=== PATIENT | female | born 1995 | race Caucasian/White ===

== ENCOUNTER 2016-11-03 05:19 | Emergency (ER) | payer BC ==
[2016-11-03 06:00] LABS: BASOPHILS 0.4 % (0.0-2.0); EOSINOPHILS 3.4 % (0-7); HEMATOCRIT 33.1 % (36.0-48.0); HEMOGLOBIN 10.4 g/dL (12-16); IMMATURE GRANULOCYTES 0.3 % (0-5); LYMPHOCYTES 37.5 % (15-50); MCH 24.2 pg (26.0-34.0); MCHC 31.4 g/dL (31.0-37.0); MEAN PLATELET VOLUME 9.8 fL (7.4-10.4); MONOCYTES 3.8 % (2-11); NEUTROPHILS 54.6 % (40-80); PLATELET COUNT 346 10x3/uL (130-400); WBC 11.6 10x3/uL (4.8-10.8)
[2016-11-03 06:09] LABS: HCG URINE NEGATIVE (NEGATIVE)
[2016-11-03 06:27] LABS: APPEARANCE CLEAR (CLEAR); COLOR YELLOW (YELLOW); GLUCOSE NEGATIVE (NEGATIVE); KETONE NEGATIVE (NEGATIVE); LEUKOCYTE ESTERASE TRACE (NEGATIVE); NITRITE NEGATIVE (NEGATIVE); PROTEIN NEGATIVE (NEGATIVE); SPECIFIC GRAVITY 1.015 (1.005-1.020)
[2016-11-03 06:28] LABS: BILIRUBIN NEGATIVE (NEGATIVE); UROBILINOGEN NORMAL (NORMAL)
[2016-11-03 06:30] LABS: EPITHELIAL CELLS 0-5 /hpf (0-5); RED CELLS - URINE 0-5 /hpf (0-5); WHITE CELLS - URINE 0-5 /hpf (0-5)
[2016-11-03 06:31] LABS: BACTERIA MODERATE /hpf (NONE SEEN); MUCUS <1+ /lpf (NONE SEEN)
[2016-11-03 06:36] LABS: ALBUMIN 3.5 g/dL (3.4-5.0); ANION GAP 12.3 mmol/L (8-16); BILIRUBIN - TOTAL 0.59 mg/dL (0.2-1.3); CALCIUM 8.8 mg/dL (8.5-10.1); CARBON DIOXIDE 26.4 mmol/L (21.0-32.0); POTASSIUM - SERUM 3.7 mmol/L (3.5-5.1); PROTEIN - SERUM 7.5 g/dL (6.4-8.2)
== END 2016-11-03 08:47 | disposition home or self-care (01) ==
LOC: D.ER 05:19
PROVIDERS: Family Medicine
DX: R10.9 Unspecified abdominal pain (principal); N76.0 Acute vaginitis; D64.9 Anemia, unspecified; R82.71 Bacteriuria

== ENCOUNTER 2016-11-05 00:58 | Emergency (ER) | payer BC | END 2016-11-05 02:48 | disposition home or self-care (01) | LOC: D.ER 00:58 | DX: R55 Syncope and collapse (principal); G35 Multiple sclerosis ==

== ENCOUNTER 2018-09-01 21:19 | Emergency (ER) | payer SELFPAY ==
[~2018-09-01] VITALS: Ht 165.1 cm; Wt 100.0 kg
[2018-09-01 21:37] VITALS: Ht 165.1 cm; Wt 100.0 kg
[2018-09-01 21:57] LABS: BASOPHILS 0.4 % (0-2); EOSINOPHILS 7.4 % (0-7); HEMATOCRIT 38.4 % (36.0-48.0); HEMOGLOBIN 12.3 g/dL (12-16); IMMATURE GRANULOCYTES 0.2 % (0-5); LYMPHOCYTES 32.4 % (15-50); MCH 24.9 pg (26.0-34.0); MCV 77.9 fL (80.0-100.0); MEAN PLATELET VOLUME 9.3 fL (7.4-10.4); MONOCYTES 6.2 % (2-11); NEUTROPHILS 53.4 % (40-80); PLATELET COUNT 332 10x3/uL (130-400); RBC 4.93 10x6/uL (4.00-5.40); RDW 17.8 % (11.5-14.5); WBC 11.6 10x3/uL (4.8-10.8)
[2018-09-01 22:21] LABS: HCG URINE NEGATIVE (NEGATIVE)
[2018-09-01 22:27] LABS: APPEARANCE HAZY (CLEAR); BILIRUBIN NEGATIVE (NEGATIVE); COLOR YELLOW (YELLOW); GLUCOSE NEGATIVE (NEGATIVE); KETONE NEGATIVE (NEGATIVE); NITRITE NEGATIVE (NEGATIVE); PROTEIN NEGATIVE (NEGATIVE); UROBILINOGEN NORMAL (NORMAL)
[2018-09-01 22:29] LABS: BACTERIA MANY /hpf (NONE SEEN); MUCUS <1+ /lpf (NONE SEEN); RED CELLS - URINE 0-5 /hpf (0-5); WHITE CELLS - URINE 25-50 /hpf (0-5)
[2018-09-01 22:34] LABS: ALBUMIN 3.5 g/dL (3.4-5.0); ALKALINE PHOSPHATASE 56 U/L (46-116); ALT (SGPT) 48 U/L (10-68); BILIRUBIN - TOTAL 0.41 mg/dL (0.2-1.3); CALC OSMOLALITY 274 mosm/kg (275-300); CALCIUM 8.6 mg/dL (8.5-10.1); CARBON DIOXIDE 23.8 mmol/L (21.0-32.0); CHLORIDE - SERUM 104 mmol/L (98-107); CREATININE - SERUM 0.7 mg/dL (0.6-1.3); GLUCOSE 94 mg/dL (74-106); PROTEIN - SERUM 7.8 g/dL (6.4-8.2); SODIUM 138 mmol/L (136-145); UREA NITROGEN 9 mg/dL (7-18); eGFR NON AFRICAN AMERICAN > 90 mL/min (90-120)
[2018-09-01] MEDS ORDERED: KEFLEX500 MG PO (23:07)
[2018-09-01] MEDS ORDERED: ULTRAM50 MG PO (23:07)
[2018-09-01 23:46] VITALS: BP 135/88
== END 2018-09-01 23:46 | disposition home or self-care (01) ==
LOC: D.ER 21:19
PROVIDERS: Family Medicine
DX: N39.0 Urinary tract infection, site not specified (principal)

== ENCOUNTER 2019-04-24 17:06 | Emergency (ER) | payer MEDICAID ==
[~2019-04-24] VITALS: Ht 165.1 cm; Wt 102.3 kg
[~2019-04-24 17:06] MED LIST: KEFLEX500 MG PO; ULTRAM50 MG PO
[2019-04-24 17:10] VITALS: Ht 165.1 cm; Wt 102.3 kg
[2019-04-24] MEDS ORDERED: NEURONTIN 300300 MG PO (17:16)
[2019-04-24] MEDS ORDERED: KEPPRA500 MG PO (17:16)
[2019-04-24] MEDS ORDERED: PROTONIX40 MG PO (17:16)
[2019-04-24 17:31] LABS: APPEARANCE CLEAR (CLEAR); BILIRUBIN NEGATIVE (NEGATIVE); COLOR YELLOW (YELLOW); GLUCOSE NEGATIVE (NEGATIVE); KETONE NEGATIVE (NEGATIVE); NITRITE NEGATIVE (NEGATIVE); PROTEIN NEGATIVE (NEGATIVE); SPECIFIC GRAVITY 1.005 (1.005-1.020); UROBILINOGEN NORMAL (NORMAL)
[2019-04-24 17:34] LABS: AMORPHOUS SEDIMENT <1+ /lpf (NONE SEEN); BACTERIA MODERATE /hpf (NONE SEEN); RED CELLS - URINE 0-5 /hpf (0-5)
[2019-04-24 17:43] LABS: EOSINOPHILS 9.3 % (0-7); HEMATOCRIT 38.5 % (36.0-48.0); HEMOGLOBIN 12.9 g/dL (12-16); LYMPHOCYTES 33.2 % (15-50); MCH 27.3 pg (26.0-34.0); MCHC 33.5 g/dL (31.0-37.0); MCV 81.4 fL (80.0-100.0); MEAN PLATELET VOLUME 9.6 fL (7.4-10.4); MONOCYTES 5.3 % (2-11); NEUTROPHILS 51.2 % (40-80); PLATELET COUNT 276 10x3/uL (130-400); RBC 4.73 10x6/uL (4.00-5.40); RDW 15.2 % (11.5-14.5)
[2019-04-24 17:55] LABS: ALBUMIN 3.4 g/dL (3.4-5.0); ALKALINE PHOSPHATASE 52 U/L (46-116); ALT (SGPT) 53 U/L (10-68); BILIRUBIN - TOTAL 0.61 mg/dL (0.2-1.3); CALC OSMOLALITY 278 mosm/kg (275-300); CARBON DIOXIDE 27.2 mmol/L (21.0-32.0); CHLORIDE - SERUM 106 mmol/L (98-107); CREATININE - SERUM 0.7 mg/dL (0.6-1.3); GLUCOSE 98 mg/dL (74-106); POTASSIUM - SERUM 3.8 mmol/L (3.5-5.1); PROTEIN - SERUM 6.9 g/dL (6.4-8.2); SODIUM 141 mmol/L (136-145); UREA NITROGEN 6 mg/dL (7-18); eGFR NON AFRICAN AMERICAN > 90 mL/min (90-120)
[2019-04-24] MEDS ORDERED: MACROBID100 MG PO (18:12)
[2019-04-24] MEDS ORDERED: TORADOL10 MG PO (18:12)
[2019-04-24 18:44] VITALS: BP 130/91
== END 2019-04-24 19:02 | disposition home or self-care (01) ==
LOC: D.ER 17:06
PROVIDERS: Emergency Medicine
DX: N39.0 Urinary tract infection, site not specified (principal)

== ENCOUNTER 2019-10-06 18:08 | Emergency (ER) | payer MEDICAID ==
[~2019-10-06] VITALS: Ht 165.1 cm; Wt 97.7 kg
[~2019-10-06 18:08] MED LIST changes: +KEPPRA500 MG PO; +MACROBID100 MG PO; +NEURONTIN 300300 MG PO; +PROTONIX40 MG PO; +TORADOL10 MG PO
[2019-10-06 18:29] VITALS: Ht 165.1 cm; Wt 97.7 kg
[2019-10-06] MEDS ORDERED: AMOXICILLIN500 M1 PO (19:15)
[2019-10-06] MEDS ORDERED: MUCINEX DM ER1 EAC1 PO (19:15)
[2019-10-06] MEDS ORDERED: ATARAX 25 MG TA25 MG PO (19:15)
[2019-10-06] MEDS ORDERED: ALBUTEROL SULF8.5 GM INH (19:17)
[2019-10-06 19:45] VITALS: BP 140/89
== END 2019-10-06 19:45 | disposition home or self-care (01) ==
LOC: D.ER 18:08
DX: J20.9 Acute bronchitis, unspecified (principal); J06.9 Acute upper respiratory infection, unspecified

== ENCOUNTER 2019-10-30 05:11 | Emergency (ER) | payer MEDICAID ==
[~2019-10-30] VITALS: Ht 165.1 cm; Wt 97.7 kg
[~2019-10-30 05:11] MED LIST changes: +ALBUTEROL SULF8.5 GM INH; +AMOXICILLIN500 M1 PO; +ATARAX 25 MG TA25 MG PO; +MUCINEX DM ER1 EAC1 PO
[2019-10-30 05:17] VITALS: Ht 165.1 cm; Wt 97.7 kg
[2019-10-30] MEDS ORDERED: MONODOX100 MG PO (06:04)
[2019-10-30] MEDS ORDERED: HYDROCODON-ACE1 EAC2 PO (06:04)
[2019-10-30 06:22] VITALS: BP 123/78
[2019-10-31] MEDS ORDERED: XARELTO10 MG PO (22:45)
[2019-10-31] MEDS ORDERED: [UNRECOGNIZED DRUG - OTHER] (22:47)
[2019-10-31] MEDS ORDERED: TYLENOL W/CODEI1 TAB PO (23:37)
[2019-10-31] MEDS ORDERED: PHENERGAN25 M1 PO (23:37)
[2019-10-31] MEDS ORDERED: MACROBID100 MG PO (23:52)
== END 2019-10-30 06:22 | disposition home or self-care (01) ==
LOC: D.ER 05:11
DX: L02.214 Cutaneous abscess of groin (principal)

== ENCOUNTER 2019-10-31 22:38 | Emergency (ER) | payer MEDICAID ==
[~2019-10-31] VITALS: Ht 165.1 cm; Wt 97.7 kg
[~2019-10-31 22:38] MED LIST changes: +HYDROCODON-ACE1 EAC2 PO; +MONODOX100 MG PO
[2019-10-31 22:43] VITALS: Ht 165.1 cm; Wt 97.7 kg
[2019-10-31] MEDS ORDERED: XARELTO10 MG PO (22:45)
[2019-10-31] MEDS ORDERED: [UNRECOGNIZED DRUG - OTHER] (22:47)
[2019-10-31 23:17] LABS: BASOPHILS 0.2 % (0-2); EOSINOPHILS 4.7 % (0-7); HEMATOCRIT 35.4 % (36.0-48.0); HEMOGLOBIN 11.2 g/dL (12-16); IMMATURE GRANULOCYTES 0.2 % (0-5); LYMPHOCYTES 26.8 % (15-50); MCHC 31.6 g/dL (31.0-37.0); MCV 82.3 fL (80.0-100.0); MONOCYTES 6.1 % (2-11); PLATELET COUNT 327 10x3/uL (130-400); RDW 15.6 % (11.5-14.5); WBC 12.5 10x3/uL (4.8-10.8)
[2019-10-31 23:34] LABS: ANION GAP 13.8 mmol/L (8-16); CALCIUM 8.5 mg/dL (8.5-10.1); CARBON DIOXIDE 26.6 mmol/L (21.0-32.0); CREATININE - SERUM 1.1 mg/dL (0.6-1.3); POTASSIUM - SERUM 3.4 mmol/L (3.5-5.1)
[2019-10-31 23:34] LABS: HCG URINE NEGATIVE (NEGATIVE)
[2019-10-31 23:35] LABS: APPEARANCE HAZY (CLEAR); BILIRUBIN NEGATIVE (NEGATIVE); COLOR YELLOW (YELLOW); GLUCOSE NEGATIVE (NEGATIVE); KETONE NEGATIVE (NEGATIVE); NITRITE NEGATIVE (NEGATIVE); PROTEIN 2+ mg/dL (NEGATIVE); UROBILINOGEN NORMAL (NORMAL)
[2019-10-31] MEDS ORDERED: PHENERGAN25 M1 PO (23:37)
[2019-10-31] MEDS ORDERED: TYLENOL W/CODEI1 TAB PO (23:37)
[2019-10-31 23:39] LABS: ALBUMIN 3.2 g/dL (3.4-5.0); BILIRUBIN - TOTAL 1.64 mg/dL (0.2-1.3); PROTEIN - SERUM 7.2 g/dL (6.4-8.2)
[2019-10-31 23:40] LABS: BACTERIA MANY /hpf (NEGATIVE); EPITHELIAL CELLS 0-5 /hpf (0-5); RED CELLS - URINE 0-5 /hpf (0-5)
[2019-10-31] MEDS ORDERED: MACROBID100 MG PO (23:52)
[2019-11-01 00:01] VITALS: BP 141/87
== END 2019-11-01 00:01 | disposition home or self-care (01) ==
LOC: D.ER 22:38
PROVIDERS: Family Medicine
DX: L03.314 Cellulitis of groin (principal); N39.0 Urinary tract infection, site not specified; Z86.711 Personal history of pulmonary embolism

== ENCOUNTER 2019-11-08 17:16 | Emergency (ER) | payer MEDICAID ==
[~2019-11-08] VITALS: Ht 165.1 cm; Wt 100.0 kg
[~2019-11-08 17:16] MED LIST changes: +PHENERGAN25 M1 PO; +TYLENOL W/CODEI1 TAB PO; +XARELTO10 MG PO; +[UNRECOGNIZED DRUG - OTHER]
[2019-11-08 17:52] VITALS: Ht 165.1 cm; Wt 100.0 kg
[2019-11-08 19:08] LABS: APPEARANCE CLEAR (CLEAR); BILIRUBIN NEGATIVE (NEGATIVE); COLOR YELLOW (YELLOW); GLUCOSE NEGATIVE (NEGATIVE); KETONE NEGATIVE (NEGATIVE); NITRITE NEGATIVE (NEGATIVE); PROTEIN NEGATIVE (NEGATIVE); SPECIFIC GRAVITY 1.015 (1.005-1.020); UROBILINOGEN NORMAL (NORMAL)
[2019-11-08 19:09] LABS: BACTERIA FEW /hpf (NEGATIVE); EPITHELIAL CELLS 0-5 /hpf (0-5); RED CELLS - URINE 0-5 /hpf (0-5); WHITE CELLS - URINE 0-5 /hpf (NEGATIVE)
[2019-11-08 20:25] LABS: BASOPHILS 0.4 % (0-2); EOSINOPHILS 6.4 % (0-7); HEMATOCRIT 37.9 % (36.0-48.0); IMMATURE GRANULOCYTES 0.3 % (0-5); LYMPHOCYTES 43.7 % (15-50); MCH 25.8 pg (26.0-34.0); MCHC 31.7 g/dL (31.0-37.0); MCV 81.3 fL (80.0-100.0); MEAN PLATELET VOLUME 9.2 fL (7.4-10.4); MONOCYTES 4.8 % (2-11); NEUTROPHILS 44.4 % (40-80); RBC 4.66 10x6/uL (4.00-5.40); RDW 15.5 % (11.5-14.5); WBC 11.2 10x3/uL (4.8-10.8)
[2019-11-08 20:26] LABS: PLATELET COUNT 469 10x3/uL (130-400)
[2019-11-08 20:29] LABS: HCG URINE NEGATIVE (NEGATIVE)
[2019-11-08 20:38] LABS: CALC OSMOLALITY 279 mosm/kg (275-300); CARBON DIOXIDE 27.9 mmol/L (21.0-32.0); CHLORIDE - SERUM 104 mmol/L (98-107); CREATININE - SERUM 0.8 mg/dL (0.6-1.3); GLUCOSE 84 mg/dL (74-106); POTASSIUM - SERUM 3.8 mmol/L (3.5-5.1); SODIUM 141 mmol/L (136-145); UREA NITROGEN 12 mg/dL (7-18); eGFR NON AFRICAN AMERICAN > 90 mL/min (90-120)
[2019-11-08 20:42] LABS: ALBUMIN 3.6 g/dL (3.4-5.0); ALKALINE PHOSPHATASE 67 U/L (30-120); ALT (SGPT) 40 U/L (10-68); BILIRUBIN - TOTAL 0.35 mg/dL (0.2-1.3); PROTEIN - SERUM 7.6 g/dL (6.4-8.2)
[2019-11-08] MEDS ORDERED: ZITHROMAX250 MG PO (21:23)
[2019-11-08] MEDS ORDERED: OMNICEF300 MG PO (21:23)
[2019-11-08] MEDS ORDERED: ACETAMINOPHEN500 M1 PO (21:27)
[2019-11-08] MEDS ORDERED: CYCLOBENZAPRINE10 MG PO (21:27)
[2019-11-08] MEDS ORDERED: IBUPROFEN800 MG PO (21:27)
[2019-11-08 21:59] VITALS: BP 138/91
== END 2019-11-08 22:00 | disposition home or self-care (01) ==
LOC: D.ER 17:16
PROVIDERS: Family Medicine
DX: R10.9 Unspecified abdominal pain (principal); J18.1 Lobar pneumonia, unspecified organism; N39.0 Urinary tract infection, site not specified

== ENCOUNTER 2020-02-29 04:22 | Emergency (ER) | payer MEDICAID ==
[~2020-02-29] VITALS: Ht 165.1 cm; Wt 104.5 kg
[~2020-02-29 04:22] MED LIST changes: +ACETAMINOPHEN500 M1 PO; +BENTYL10 MG PO; +CYCLOBENZAPRINE10 MG PO; +IBUPROFEN800 MG PO; +LEVSIN/ANASP0.125 MG PO; +OMNICEF300 MG PO; +ZITHROMAX250 MG PO; +ZOFRAN ODT4 MG/UDTAB PO
[2020-02-29 04:28] VITALS: Ht 165.1 cm; Wt 104.5 kg
[2020-02-29 05:01] LABS: BASOPHILS 0.6 % (0-2); EOSINOPHILS 8.2 % (0-7); HEMATOCRIT 40.1 % (36.0-48.0); HEMOGLOBIN 12.7 g/dL (12-16); IMMATURE GRANULOCYTES 0.3 % (0-5); MCH 26.6 pg (26.0-34.0); MCHC 31.7 g/dL (31.0-37.0); MCV 84.1 fL (80.0-100.0); MEAN PLATELET VOLUME 9.9 fL (7.4-10.4); MONOCYTES 5.7 % (2-11); NEUTROPHILS 49.2 % (40-80); PLATELET COUNT 316 10x3/uL (130-400); RBC 4.77 10x6/uL (4.00-5.40); RDW 14.5 % (11.5-14.5); WBC 11.4 10x3/uL (4.8-10.8)
[2020-02-29 05:10] LABS: CALC OSMOLALITY 276 mosm/kg (275-300); CALCIUM 8.6 mg/dL (8.5-10.1); CARBON DIOXIDE 27.8 mmol/L (21.0-32.0); CHLORIDE - SERUM 104 mmol/L (98-107); CREATININE - SERUM 0.8 mg/dL (0.6-1.3); GLUCOSE 105 mg/dL (74-106); POTASSIUM - SERUM 4.4 mmol/L (3.5-5.1); SODIUM 139 mmol/L (136-145); UREA NITROGEN 9 mg/dL (7-18); eGFR NON AFRICAN AMERICAN > 90 mL/min (90-120)
[2020-02-29 05:16] LABS: ALBUMIN 3.5 g/dL (3.4-5.0); ALKALINE PHOSPHATASE 56 U/L (30-120); ALT (SGPT) 48 U/L (10-68); BILIRUBIN - TOTAL 0.63 mg/dL (0.2-1.3); LIPASE 109 U/L (73-393); PROTEIN - SERUM 7.3 g/dL (6.4-8.2)
[2020-02-29 05:21] LABS: UDS - AMPHET NEGATIVE QUAL (NEGATIVE); UDS - BARB NEGATIVE QUAL (NEGATIVE); UDS - BENZO NEGATIVE QUAL (NEGATIVE); UDS - COCAINE NEGATIVE QUAL (NEGATIVE); UDS - OPIATE NEGATIVE QUAL (NEGATIVE); UDS - PCP NEGATIVE QUAL (NEGATIVE); UDS - THC POSITIVE QUAL (NEGATIVE)
[2020-02-29 05:27] LABS: HCG URINE NEGATIVE (NEGATIVE)
[2020-02-29 05:38] LABS: BILIRUBIN NEGATIVE (NEGATIVE); GLUCOSE NEGATIVE (NEGATIVE); KETONE NEGATIVE (NEGATIVE); NITRITE NEGATIVE (NEGATIVE); UROBILINOGEN NORMAL (NORMAL)
[2020-02-29 05:39] LABS: BACTERIA MODERATE /hpf (NEGATIVE); EPITHELIAL CELLS 0-5 /hpf (0-5); RED CELLS - URINE 0-5 /hpf (0-5); WHITE CELLS - URINE 0-5 /hpf (NEGATIVE)
[2020-02-29 05:40] LABS: AMORPHOUS SEDIMENT <1+ /lpf (NONE SEEN)
[2020-02-29] MEDS ORDERED: FLAGYL500 MG PO (06:34)
[2020-02-29] MEDS ORDERED: MACROBID100 MG PO (06:34)
[2020-02-29 08:13] VITALS: BP 138/96
== END 2020-02-29 08:15 | disposition home or self-care (01) ==
LOC: D.ER 04:22
PROVIDERS: Family Medicine
DX: N76.0 Acute vaginitis (principal); R39.11 Hesitancy of micturition; Z79.01 Long term (current) use of anticoagulants; N30.90 Cystitis, unspecified without hematuria; Z86.711 Personal history of pulmonary embolism; R11.2 Nausea with vomiting, unspecified; M54.5 Low back pain

== ENCOUNTER 2020-05-27 15:00 | Emergency (ER) | payer MEDICAID ==
[~2020-05-27 15:00] MED LIST changes: +FLAGYL500 MG PO
[2020-05-27 15:13] VITALS: Ht 165.1 cm
[2020-05-27 16:18] LABS: BASOPHILS 0.5 % (0-2); EOSINOPHILS 6.1 % (0-7); HEMATOCRIT 40.7 % (36.0-48.0); HEMOGLOBIN 13.2 g/dL (12-16); IMMATURE GRANULOCYTES 0.1 % (0-5); LYMPHOCYTES 26.4 % (15-50); MCH 27.4 pg (26.0-34.0); MCHC 32.4 g/dL (31.0-37.0); MCV 84.6 fL (80.0-100.0); MEAN PLATELET VOLUME 9.3 fL (7.4-10.4); MONOCYTES 5.3 % (2-11); NEUTROPHILS 61.6 % (40-80); PLATELET COUNT 324 10x3/uL (130-400); RBC 4.81 10x6/uL (4.00-5.40); RDW 14.7 % (11.5-14.5); WBC 10.9 10x3/uL (4.8-10.8)
[2020-05-27 16:27] LABS: CALC OSMOLALITY 277 mosm/kg (275-300); CALCIUM 8.3 mg/dL (8.5-10.1); CARBON DIOXIDE 28.3 mmol/L (21.0-32.0); CHLORIDE - SERUM 104 mmol/L (98-107); GLUCOSE 91 mg/dL (74-106); POTASSIUM - SERUM 3.9 mmol/L (3.5-5.1); SODIUM 140 mmol/L (136-145); UREA NITROGEN 9 mg/dL (7-18); eGFR NON AFRICAN AMERICAN 72 mL/min (90-120)
[2020-05-27 16:36] LABS: ALBUMIN 3.7 g/dL (3.4-5.0); ALKALINE PHOSPHATASE 50 U/L (30-120); ALT (SGPT) 57 U/L (10-68); AMYLASE - SERUM 29 U/L (25-115); BILIRUBIN - TOTAL 1.16 mg/dL (0.2-1.3); LIPASE 81 U/L (73-393); PROTEIN - SERUM 7.2 g/dL (6.4-8.2)
[2020-05-27 16:38] LABS: TROPONIN-I < 0.017 ng/mL (0.000-0.060)
[2020-05-27 18:19] LABS: HCG URINE NEGATIVE (NEGATIVE)
[2020-05-27 18:24] LABS: BILIRUBIN NEGATIVE (NEGATIVE); GLUCOSE NEGATIVE (NEGATIVE); KETONE NEGATIVE (NEGATIVE); NITRITE NEGATIVE (NEGATIVE); UROBILINOGEN NORMAL (NORMAL)
[2020-05-27 18:26] LABS: RED CELLS - URINE 0-5 /hpf (0-5)
[2020-05-27 18:27] LABS: BACTERIA MODERATE /hpf (NEGATIVE)
[2020-05-27] MEDS ORDERED: ZOFRAN ODT4 MG/UDTAB PO (18:54)
[2020-05-27] MEDS ORDERED: BENTYL 20 MG TA20 MG PO (18:54)
[2020-05-27] MEDS ORDERED: MACROBID100 MG PO (18:54)
[2020-05-27 19:22] VITALS: BP 152/105
== END 2020-05-27 19:22 | disposition home or self-care (01) ==
LOC: D.ER 15:00
PROVIDERS: Family Medicine
DX: N39.0 Urinary tract infection, site not specified (principal); R11.0 Nausea; R10.32 Left lower quadrant pain

== ENCOUNTER 2021-01-03 22:26 | Emergency (ER) | payer BC ==
[~2021-01-03] VITALS: Ht 165.1 cm; Wt 100.0 kg
[~2021-01-03 22:26] MED LIST changes: +BENTYL 20 MG TA20 MG PO; +LEVAQUIN750 MG PO
[2021-01-03 22:31] VITALS: Ht 165.1 cm; Wt 100.0 kg
[2021-01-03 22:36] VITALS: BP 155/96
[2021-01-03] MEDS ORDERED: ATIVAN1 MG PO (22:45)
[2021-01-03 22:59] LABS: BASOPHILS 0.6 % (0-2); HEMATOCRIT 41.3 % (36.0-48.0); HEMOGLOBIN 14.1 g/dL (12-16); IMMATURE GRANULOCYTES 0.2 % (0-5); LYMPHOCYTE ABS# 4.46 10x3/uL (1.18-3.74); LYMPHOCYTES 36.8 % (15-50); MCH 28.1 pg (26.0-34.0); MCHC 34.1 g/dL (31.0-37.0); MCV 82.3 fL (80.0-100.0); MEAN PLATELET VOLUME 9.4 fL (7.4-10.4); MONOCYTES 5.9 % (2-11); NEUTROPHILS 48.5 % (40-80); PLATELET COUNT 306 10x3/uL (130-400); RBC 5.02 10x6/uL (4.00-5.40); RDW 14.7 % (11.5-14.5); WBC 12.1 10x3/uL (4.8-10.8)
[2021-01-03 23:03] LABS: CALC OSMOLALITY 278 mosm/kg (275-300); CALCIUM 9.1 mg/dL (8.5-10.1); CARBON DIOXIDE 26.9 mmol/L (21.0-32.0); CHLORIDE - SERUM 103 mmol/L (98-107); CREATININE - SERUM 0.8 mg/dL (0.6-1.3); GLUCOSE 105 mg/dL (74-106); POTASSIUM - SERUM 3.8 mmol/L (3.5-5.1); SODIUM 140 mmol/L (136-145); UREA NITROGEN 12 mg/dL (7-18); eGFR NON AFRICAN AMERICAN > 90 mL/min (90-120)
[2021-01-03 23:09] LABS: BACTERIA MODERATE HPF (NONE SEEN); BILIRUBIN NEGATIVE (NEGATIVE); KETONE NEGATIVE (NEGATIVE); NITRITE NEGATIVE (NEGATIVE); UROBILINOGEN NORMAL mg/dL (< 2); WHITE CELLS - URINE OCC HPF (0-4)
[2021-01-03 23:12] LABS: UDS - AMPHET NEGATIVE QUAL (NEGATIVE); UDS - BARB NEGATIVE QUAL (NEGATIVE); UDS - BENZO NEGATIVE QUAL (NEGATIVE); UDS - COCAINE NEGATIVE QUAL (NEGATIVE); UDS - OPIATE NEGATIVE QUAL (NEGATIVE); UDS - PCP NEGATIVE QUAL (NEGATIVE); UDS - THC POSITIVE QUAL (NEGATIVE)
[2021-01-03 23:19] LABS: ALKALINE PHOSPHATASE 64 U/L (30-120); ALT (SGPT) 57 U/L (10-68); THYROID STIMULATING HORMONE 1.64 uIU/mL (0.36-3.74)
== END 2021-01-04 | disposition home or self-care (01) ==
LOC: D.ER 22:26
PROVIDERS: Family Medicine
DX: F41.9 Anxiety disorder, unspecified (principal)